=== PATIENT | female | born 1985 | race Caucasian/White ===

== ENCOUNTER 2016-12-01 06:50 | Day surgery (SDC) | payer OTHER ==
[2016-11-30 10:48] VITALS: BMI 33.7
[~2016-12-01 06:50] MED LIST: LACTATED RINGERS 1,000 ML IV SCH; LIDOCAINE 1% 20 ML VIAL (10MG/ML) FOR IV START INTRADERMA PRN
[2016-12-01 07:20] VITALS: TEMP 98.5
[2016-12-01 07:23] LABS: Glucose,Whole Blood 129 mg/dL (75-99)
[2016-12-01] MEDS ORDERED: fentaNYL (PF) 50 MCG/ML 2 ML AMP ONE (07:30)
[2016-12-01] MEDS ORDERED: LIDOCAINE 1% INJ 10MG/ML (20 ML MDV) ONE (07:30)
[2016-12-01] MEDS ORDERED: PROPOFOL 10 MG/ML 20 ML VIAL IV ONE (07:30)
[2016-12-01 07:55] VITALS: RESP 18
[2016-12-01 08:14] VITALS: BP 110/71; PULSE 67
[2016-12-01 08:29] LABS: Basophils # (A) 0.1 k/uL (0-0.2); Basophils % (A) 1 %; CHCM 35.4; Eosinophils # (A) 0.5 k/uL (0-0.7); Eosinophils % (A) 4 %; HCT 37.2 % (34.0-46.0); HDW 2.97; Luc # (Auto) 0.29; Luc % (Auto) 2; Lymphocytes # (A) 3.2 k/uL (1.0-4.8); Lymphocytes % (A) 25 %; MCH 29.7 pg (25.0-35.0); Mean Platelet Volume 6.9; Monocytes # (A) 0.8 k/uL (0-1.0); Monocytes % (A) 6 %; Neutrophils # (A) 7.8 k/uL (1.3-7.7); Neutrophils % (A) 62 %; RBC 4.38 m/uL (3.80-5.40); RDW 13.4 % (11.5-15.5); WBC 12.6 k/uL (3.8-10.6); WBC (Perox) 12.83
--- NOTE | 2016-12-01 17:06 | PCN ---
DATE OF PROCEDURE: 12/01/2016 PREOPERATIVE DIAGNOSIS: Leukocytosis. POSTOPERATIVE DIAGNOSIS: Leukocytosis. ANESTHESIA: Local with IV systemic sedation. DETAILS: Utilizing sterile technique, the skin overlying the right iliac crest was prepared with alcohol. After adequate sterile draping, local anesthesia and systemic sedation, size 11, 4 inches Jamshidi needle was utilized to access the periosteum with ease. A total of 16 mm of aspirate as well as crest 6 mm bone core biopsies were obtained. The patient tolerated the procedure well. There were no immediate procedure-related complications. Total blood less than 1 mL. Results pending.
== END 2016-12-01 08:24 | disposition home or self-care (01) ==
LOC: OR 06:50
PROVIDERS: ATTEND Internal Medicine Hematology & Oncology
DX: D72.829 Elevated white blood cell count, unspecified (principal); E78.5 Hyperlipidemia, unspecified; D47.3 Essential (hemorrhagic) thrombocythemia; D50.0 Iron deficiency anemia secondary to blood loss (chronic); I47.1 Supraventricular tachycardia; Z79.84 Long term (current) use of oral hypoglycemic drugs; Z79.899 Other long term (current) drug therapy
CPT/HCPCS: 81025; 85025; 38221; J2001; J3010; J2704; G0364